=== PATIENT | female | born 1950 | race Caucasian/White ===

== ENCOUNTER 2018-08-31 07:30 | Emergency (ER) | payer MEDICARE, MEDICAID ==
[~2018-08-31] VITALS: Ht 167.6 cm; Wt 58.1 kg
[~2018-08-31 07:30] MED LIST: ALPR0.5T3; ASPI-231; ESTR1TAB5; NOR10T PO; PRAVACHOL PO; PREVICID; TRAM-297 OR
[2018-08-31 07:55] VITALS: BP 142/70
== END 2018-08-31 09:45 | disposition home or self-care (01) ==
LOC: ER 07:43
DX: R07.89 Other chest pain (principal); F41.0 Panic disorder [episodic paroxysmal anxiety]; E78.5 Hyperlipidemia, unspecified; I10 Essential (primary) hypertension; K21.9 Gastro-esophageal reflux disease without esophagitis; F17.210 Nicotine dependence, cigarettes, uncomplicated; Z76.0 Encounter for issue of repeat prescription; Z90.49 Acquired absence of other specified parts of digestive tract; Z90.710 Acquired absence of both cervix and uterus; Z79.899 Other long term (current) drug therapy
CPT/HCPCS: 93005

== ENCOUNTER 2020-08-06 17:24 | Inpatient (IN) | payer MEDICARE, MEDICAID ==
[~2020-08-06] VITALS: Ht 167.6 cm; Wt 71.7 kg
[~2020-08-06 17:24] MED LIST changes: -ASPI-231; +ASPI1TAB20
[2020-08-06 19:24] LABS: Basophils # (auto) 0 10 ^3/uL (0-0.2); Basophils % (auto) 0.2 % (0.0-2.0); Eosinophils # (auto) 0 10 ^3/uL (0-0.8); Eosinophils % (auto) 0.1 % (0.0-7.0); Hematocrit 39.4 % (36.0-46.0); Hemoglobin 13.1 g/dL (12.2-16.2); Lymphocytes # (auto) 0.7 10 ^3/uL (0.4-5.4); Lymphocytes % (auto) 5.1 % (10.0-50.0); Mean Corpuscular Hemoglobin 31.2 pg (28.0-32.0); Mean Corpuscular Hgb Conc. 33.2 g/dL (32.0-36.0); Monocytes # (auto) 0.6 10 ^3/uL (0-1.3); Monocytes % (auto) 4.3 % (0.0-12.0); Neutrophils % (auto) 90.3 % (37.0-80.0); Nucleated Red Blood Cells % 0.1 %; White Blood Cell 14.4 10^3/uL (4.4-10.8)
[2020-08-06 19:38] LABS: Albumin 3.9 g/dL (3.4-5.0); Anion Gap 12 (5-15); Blood Urea Nitrogen 11 mg/dL (7-18); Calcium 9.1 mg/dL (8.5-10.1); Carbon Dioxide 23 mmol/L (21-32); Chloride 104 mmol/L (98-107); Glucose 124 mg/dL (74-106); Magnesium 2.5 mg/dL (1.6-2.6); Potassium 4.4 mmol/L (3.5-5.1); Sodium 139 mmol/L (136-145)
[2020-08-06 19:43] LABS: Alanine Aminotransferase 28 U/L (13-56); Alkaline Phosphatase 66 U/L (45-117); Aspartate Aminotransferase 25 U/L (15-37); Bilirubin, Total 0.4 mg/dL (0.2-1.0); GFR African American 63 mL/min; GFR Non-African American 52 mL/min; Total Protein 7.4 g/dL (6.4-8.2)
[2020-08-06] MEDS ORDERED: ONDANSETRON HCL 4 MG/2 ML VIAL IV ONE (20:45)
[2020-08-06] MEDS ORDERED: SODIUM CHLORIDE 0.9% 1,000 ML IVB ONE (20:45)
[2020-08-06] MEDS ORDERED: cefTRIAXone 1GM/50ML D5W 50 ML IV ONE (22:00)
[2020-08-06] MEDS ORDERED: metroNIDAZOLE 500MG/100ML 100 ML IV ONE (22:00)
[2020-08-06 22:07] LABS: Urine Bacteria FEW /hpf (None Seen); Urine Blood TRACE /uL (Negative); Urine Specific Gravity 1.012 (1.001-1.035); Urine WBC 1 /hpf (0 - 5)
[2020-08-06 22:26] LABS: INR 1.08 (0.9-1.15); Partial Thromboplastin Time 28.3 sec (23.0-31.2)
[2020-08-06 22:31] LABS: Lactic Acid w/Reflex 3.4 mmol/L (0.4-2.0)
[2020-08-06] MEDS ORDERED: NITROGLYCERIN 0.4 MG SL TAB SL PRN (23:15)
[2020-08-06] MEDS ORDERED: MORPHINE SULFATE INJECTION 2 MG/ML SYRG IV PRN (23:15)
[2020-08-06] MEDS ORDERED: LORazepam 2MG/ML-1ML VIAL IV PRN (23:15)
[2020-08-06] MEDS ORDERED: LABETALOL HCL 5 MG/ML 4ML SYRINGE IV PRN (23:15)
[2020-08-07] VITALS (7 sets, daily range): BP systolic 94–154; BP diastolic 57–88
[2020-08-07] MEDS ORDERED: FOLI1TAB6 PO (01:44)
[2020-08-07] MEDS ORDERED: ASPI81TA10 PO (01:44)
[2020-08-07] MEDS ORDERED: MECL25TA18 PO (01:44)
[2020-08-07] MEDS ORDERED: ESTR1TAB6 PO (01:44)
[2020-08-07] MEDS ORDERED: OMEP20TA PO (01:44)
[2020-08-07] MEDS: MORPHINE SULFATE INJECTION 2 MG/ML SYRG IV PRN ×4 (04:52→19:25)
[2020-08-07] MEDS: metroNIDAZOLE 500MG/100ML 100 ML IV SCH ×3 (06:46→21:51)
[2020-08-07 07:22] LABS: Basophils # (auto) 0 10 ^3/uL (0-0.2); Basophils % (auto) 0.1 % (0.0-2.0); Eosinophils # (auto) 0 10 ^3/uL (0-0.8); Hematocrit 35.8 % (36.0-46.0); Hemoglobin 12.1 g/dL (12.2-16.2); Lymphocytes % (auto) 5.4 % (10.0-50.0); Mean Corpuscular Hemoglobin 31.7 pg (28.0-32.0); Mean Corpuscular Hgb Conc. 33.9 g/dL (32.0-36.0); Mean Corpuscular Volume 93.5 fL (80.0-100.0); Monocytes % (auto) 5.3 % (0.0-12.0); Neutrophils % (auto) 89.2 % (37.0-80.0); Nucleated Red Blood Cells % 0.1 %; Red Blood Cells 3.83 10^6/uL (4.0-5.20); Red Cell Distribution Width 13.2 % (11.8-14.3); White Blood Cell 19.1 10^3/uL (4.4-10.8)
[2020-08-07 08:04] LABS: Potassium 4.6 mmol/L (3.5-5.1)
[2020-08-07 08:14] LABS: Albumin 3.4 g/dL (3.4-5.0); BUN/Creatinine Ratio 11.2; Bilirubin, Total 0.6 mg/dL (0.2-1.0); Calcium 8.6 mg/dL (8.5-10.1)
[2020-08-07] MEDS: D5W/SOD CHLO 0.9% 1,000 ML IV SCH ×3 (09:15→21:51)
[2020-08-07] MEDS: cefTRIAXone 1GM/50ML D5W 50 ML IV SCH (09:52)
[2020-08-07] MEDS: ENOXAPARIN SOD 40 MG/0.4 ML SYRINGE SC SCH (09:52)
[2020-08-07] MEDS ORDERED: PANTOPRAZOLE 40 MG/10 ML VIAL INJ IV SCH (10:00)
[2020-08-07] MEDS: ALPRAZolam 0.5 MG TAB PO PRN (21:51)
[2020-08-07] MEDS ORDERED: ALPR2TAB2 PO (22:31)
[2020-08-08] MEDS ORDERED: TEMAZEPAM 15 MG CAP PO ONE
[2020-08-08] MEDS: MORPHINE SULFATE INJECTION 2 MG/ML SYRG IV PRN (04:35)
[2020-08-08 05:00] VITALS: BP 138/78
[2020-08-08] MEDS: D5W/SOD CHLO 0.9% 1,000 ML IV SCH ×2 (05:00→15:15)
[2020-08-08] MEDS: metroNIDAZOLE 500MG/100ML 100 ML IV SCH ×2 (05:48→14:00)
[2020-08-08 09:00] VITALS: BP 105/44
[2020-08-08] MEDS: ENOXAPARIN SOD 40 MG/0.4 ML SYRINGE SC SCH ×2 (09:25→09:36)
[2020-08-08] MEDS: cefTRIAXone 1GM/50ML D5W 50 ML IV SCH (09:25)
[2020-08-08] MEDS: ALPRAZolam 0.5 MG TAB PO PRN (09:26)
[2020-08-08 09:57] LABS: Basophils # (auto) 0.1 10 ^3/uL (0-0.2); Basophils % (auto) 0.7 % (0.0-2.0); Eosinophils # (auto) 0.1 10 ^3/uL (0-0.8); Eosinophils % (auto) 1.2 % (0.0-7.0); Hematocrit 32.9 % (36.0-46.0); Hemoglobin 11.3 g/dL (12.2-16.2); Lymphocytes # (auto) 1.4 10 ^3/uL (0.4-5.4); Lymphocytes % (auto) 12.7 % (10.0-50.0); Mean Corpuscular Hemoglobin 32.3 pg (28.0-32.0); Mean Corpuscular Hgb Conc. 34.5 g/dL (32.0-36.0); Mean Corpuscular Volume 93.8 fL (80.0-100.0); Monocytes # (auto) 0.6 10 ^3/uL (0-1.3); Monocytes % (auto) 5.8 % (0.0-12.0); Neutrophils # (auto) 8.6 10 ^3/uL (1.6-8.6); Neutrophils % (auto) 79.6 % (37.0-80.0); Red Blood Cells 3.51 10^6/uL (4.0-5.20); White Blood Cell 10.7 10^3/uL (4.4-10.8)
[2020-08-08] MEDS ORDERED: ALPRAZolam 0.5 MG TAB PO PRN (12:15)
[2020-08-08 13:00] VITALS: BP 144/80
[2020-08-08] MEDS ORDERED: METR500T14 PO (14:48)
[2020-08-08] MEDS ORDERED: AMOX500T86 PO (14:52)
[2020-08-08 15:51] VITALS: BP 105/44
== END 2020-08-08 18:16 | disposition home or self-care (01) | DRG 392 ==
LOC: EDBD 17:24 → ER 17:26 → TELE 23:01 → TELE-WESTW 23:38
PROVIDERS: ADMIT Nurse Practitioner Acute Care; ATTEND Internal Medicine
DX: K52.9 Noninfective gastroenteritis and colitis, unspecified (principal); F11.20 Opioid dependence, uncomplicated; F41.9 Anxiety disorder, unspecified; I10 Essential (primary) hypertension; Z20.822 Contact with and (suspected) exposure to COVID-19; R32 Unspecified urinary incontinence; M54.5 Low back pain; F17.210 Nicotine dependence, cigarettes, uncomplicated; Z90.49 Acquired absence of other specified parts of digestive tract; Z90.710 Acquired absence of both cervix and uterus; Z88.8 Allergy status to other drugs, medicaments and biological substances; G89.29 Other chronic pain
CPT/HCPCS: 36415; 71045; 74176; 80053; 81001; 83605; 83690; 83735; 84484; 85025; 85610; 85730; 87040; 87045; 87426; 87427; 87493; 93005; 96365; 96366; 96367; 96372; 96375; C9113; G0378; J0696; J2405; J3490; J7042